=== PATIENT | male | born 1945 | race Two or more races ===

== ENCOUNTER 2024-03-31 13:45 | Inpatient (IN) | payer MEDICARE, OTHER ==
[~2024-03-31] VITALS: Ht 162.6 cm; Wt 54.4 kg
[2024-03-31] MEDS ORDERED: ASPI81TA31 PO (13:55)
[2024-03-31] MEDS ORDERED: SERT100T PO (13:55)
[2024-03-31] MEDS ORDERED: QUET25TA PO (13:55)
[2024-03-31] MEDS ORDERED: FAMO20TA8 PO (13:56)
[2024-03-31] MEDS ORDERED: ATOR40TA PO (13:56)
[2024-03-31] MEDS ORDERED: GLIP5TAB13 PO (13:56)
[2024-03-31] MEDS ORDERED: LOPE2CAP40 PO (13:57)
[2024-03-31] MEDS ORDERED: CARV3.122 PO (13:57)
[2024-03-31] MEDS ORDERED: LEVO75CA5 PO (13:57)
[2024-03-31] MEDS ORDERED: METF-440 PO (13:57)
[2024-03-31 14:08] LABS: BASOPHILS % (AUTO) 0.8 % (0.0-2.0); EOSINOPHILS # (AUTO) 0.2 K/uL (0.0-0.7); EOSINOPHILS % (AUTO) 2.9 % (0.0-7.0); HEMATOCRIT 42.4 % (36.7-47.1); HEMOGLOBIN 14.2 g/dL (12.5-16.3); LYMPHOCYTES # (AUTO) 1.4 K/uL (0.8-4.8); MEAN CORPUSCULAR HEMOGLOBIN 32.9 uug (23.8-33.4); MEAN CORPUSCULAR HGB CONC 34 g/dL (32.5-36.3); MEAN CORPUSCULAR VOLUME 98.1 fL (73.0-96.2); MONOCYTES # (AUTO) 0.5 K/uL (0.1-1.30); MONOCYTES % (AUTO) 8.9 % (0.0-11.0); NEUTROPHILS # (AUTO) 3.1 K/uL (1.8-8.9); NEUTROPHILS % (AUTO) 59.4 % (38.5-71.5); PLATELET COUNT (AUTO) 248 K/uL (152-348); RED BLOOD CELL COUNT(AUTO) 4.32 MIL/uL (4.06-5.63); RED CELL DISTRIBUTION WIDTH 14.4 % (12.1-16.2); WHITE BLOOD COUNT (AUTO) 5.2 K/uL (3.6-10.2)
[2024-03-31 14:15] LABS: DIFFERENTIAL COMMENT 1
[2024-03-31 14:17] LABS: AMMONIA 14 umol/L (11-32); CALCIUM 9.6 mg/dL (8.5-10.1); CARBON DIOXIDE 30 mmol/L (21-32); CHLORIDE 106 mmol/L (98-107); GLUCOSE 70 mg/dL (74-106); POTASSIUM 4.3 mmol/L (3.5-5.1); SODIUM SERUM 142 mmol/L (136-145); UREA NITROGEN, BLOOD 12 mg/dL (7-18)
[2024-03-31 14:21] LABS: ETHANOL < 3 MG/DL (0-10)
[2024-03-31 14:25] LABS: ALANINE AMINOTRANSFERASE 35 U/L (16-63); ALBUMIN 3.5 g/dL (3.4-5.0); ALKALINE PHOSPHATASE 94 U/L (50-136); ASPARTATE AMINOTRANSFERASE 16 U/L (15-37); BILIRUBIN,DIRECT 0.1 mg/dL (0.0-0.2); BILIRUBIN,TOTAL 0.4 mg/dL (0.2-1.0); TOTAL PROTEIN, SERUM 6.6 g/dL (6.4-8.2)
[2024-03-31 14:26] LABS: ACETAMINOPHEN < 2.0 ug/mL (10-30)
[2024-03-31] MEDS ORDERED: MAG HYDROX/AL HYDROX/SIMETH 30 ML LIQUID UDC PO PRN (16:45)
[2024-03-31] MEDS ORDERED: LORAZEPAM 1 MG TABLET PO PRN (16:45)
[2024-03-31] MEDS ORDERED: MAGNESIUM HYDROXIDE 30 ML LIQUID UDC PO PRN (16:45)
[2024-03-31] MEDS ORDERED: TEMAZEPAM 7.5 MG CAPSULE PO PRN ×2 (16:45→21:00)
[2024-03-31 16:53] VITALS: BP 122/69; TEMP 98.8; O2SAT 96
[2024-03-31] MEDS: BLOOD SUGAR DIAGNOSTIC 1 EACH STRIP VI ONE (17:00)
[2024-03-31] MEDS ORDERED: ZOLPIDEM 5 MG TABLET PO PRN (17:30)
[2024-03-31 19:52] VITALS: BP 130/64; TEMP 98.6; O2SAT 96
[2024-03-31] MEDS: LORAZEPAM 1 MG TABLET PO PRN (20:23)
[2024-03-31] MEDS ORDERED: ZOLPIDEM 5 MG TABLET PO SCH ×2 (21:15→21:30)
[2024-03-31] MEDS: ATORVASTATIN 10 MG TABLET PO SCH (21:21)
[2024-03-31] MEDS: ZOLPIDEM 5 MG TABLET PO PRN (21:21)
[2024-04-01] MEDS: LEVOTHYROXINE SODIUM 75 MCG TABLET PO SCH (06:24)
[2024-04-01 07:54] VITALS: BP 107/57; TEMP 98; O2SAT 98
[2024-04-01] MEDS ORDERED: ASPIRIN 81 MG TAB.CHEW PO SCH (09:00)
[2024-04-01] MEDS: ASPIRIN EC 81 MG TABLET.DR PO SCH (09:11)
[2024-04-01] MEDS: FAMOTIDINE 20 MG TABLET PO SCH (09:11)
[2024-04-01] MEDS: CARVEDILOL 3.125 MG TABLET PO SCH (09:11)
[2024-04-01] MEDS: METFORMIN HCL 500 MG TABLET PO SCH (09:11)
[2024-04-01 09:17] LABS: BASOPHILS % (AUTO) 0.5 % (0.0-2.0); EOSINOPHILS # (AUTO) 0.2 K/uL (0.0-0.7); EOSINOPHILS % (AUTO) 3.1 % (0.0-7.0); HEMATOCRIT 45.6 % (36.7-47.1); HEMOGLOBIN 15.7 g/dL (12.5-16.3); LYMPHOCYTES # (AUTO) 1.9 K/uL (0.8-4.8); LYMPHOCYTES % (AUTO) 30.9 % (20.5-51.5); MEAN CORPUSCULAR HEMOGLOBIN 33.6 uug (23.8-33.4); MEAN CORPUSCULAR HGB CONC 35 g/dL (32.5-36.3); MEAN CORPUSCULAR VOLUME 97.3 fL (73.0-96.2); MONOCYTES # (AUTO) 0.5 K/uL (0.1-1.30); MONOCYTES % (AUTO) 8.6 % (0.0-11.0); NEUTROPHILS # (AUTO) 3.6 K/uL (1.8-8.9); NEUTROPHILS % (AUTO) 56.9 % (38.5-71.5); PLATELET COUNT (AUTO) 286 K/uL (152-348); RED BLOOD CELL COUNT(AUTO) 4.69 MIL/uL (4.06-5.63); RED CELL DISTRIBUTION WIDTH 14.8 % (12.1-16.2); WHITE BLOOD COUNT (AUTO) 6.3 K/uL (3.6-10.2)
[2024-04-01 09:19] LABS: DIFFERENTIAL COMMENT 1
[2024-04-01 09:25] LABS: ALANINE AMINOTRANSFERASE 36 U/L (16-63); ALBUMIN 3.9 g/dL (3.4-5.0); ALKALINE PHOSPHATASE 90 U/L (50-136); ASPARTATE AMINOTRANSFERASE 15 U/L (15-37); BILIRUBIN,TOTAL 0.6 mg/dL (0.2-1.0); CALCIUM 9.6 mg/dL (8.5-10.1); CARBON DIOXIDE 31 mmol/L (21-32); CHLORIDE 101 mmol/L (98-107); CREATININE 1.1 mg/dL (0.6-1.3); GLUCOSE 211 mg/dL (74-106); POTASSIUM 4.2 mmol/L (3.5-5.1); SODIUM SERUM 138 mmol/L (136-145); TOTAL PROTEIN, SERUM 7.4 g/dL (6.4-8.2); UREA NITROGEN, BLOOD 13 mg/dL (7-18)
[2024-04-01 09:27] LABS: MAGNESIUM 1.7 mg/dL (1.8-2.4); PHOSPHOROUS 3.7 mg/dL (2.5-4.9)
[2024-04-01] MEDS ORDERED: CHOL200059 PO (09:36)
[2024-04-01 10:31] LABS: THYROID STIMULATING HORMONE 6.396 mIU/mL (0.358-3.740)
[2024-04-01 15:00] VITALS: BP_SYST 112; BP_SYST 116; BP_DIAS 60; BP_DIAS 66; TEMP 98; TEMP 98.1; O2SAT 96; O2SAT 98
[2024-04-01] MEDS: MAGNESIUM OXIDE 400 MG TABLET PO ONE (17:56)
[2024-04-01 20:11] VITALS: BP 112/60; TEMP 98.1; O2SAT 96
[2024-04-01] MEDS: TEMAZEPAM 7.5 MG CAPSULE PO SCH (21:12)
[2024-04-01] MEDS: QUETIAPINE FUMARATE 25 MG TABLET PO SCH (21:12)
[2024-04-02 08:19] VITALS: BP 106/59; TEMP 98; O2SAT 98
[2024-04-02] MEDS: CHOLECALCIFEROL 1,000 UNIT TABLET PO SCH (08:37)
[2024-04-02] MEDS: SERTRALINE HCL 100 MG TABLET PO SCH (08:37)
[2024-04-02 16:56] VITALS: BP 107/56; TEMP 98; O2SAT 98
[2024-04-02 21:29] VITALS: BP 124/63; TEMP 98; O2SAT 98
[2024-04-03 08:09] VITALS: BP 105/58; TEMP 98.5; O2SAT 98
[2024-04-03 16:36] VITALS: BP 116/55; TEMP 98.4; O2SAT 98
[2024-04-03 20:04] VITALS: BP 111/56; TEMP 98.1; O2SAT 98
[2024-04-04 08:07] VITALS: BP 109/64; TEMP 97.4; O2SAT 97
[2024-04-04] MEDS: CLONAZEPAM 0.5 MG TABLET PO PRN (08:24)
[2024-04-04] MEDS: SERTRALINE HCL 50 MG TABLET PO SCH (08:27)
[2024-04-04] MEDS ORDERED: SERTRALINE HCL 100 MG TABLET PO SCH (09:00)
[2024-04-04 16:25] VITALS: BP 129/67; TEMP 97.6; O2SAT 96
[2024-04-04 20:11] VITALS: BP 104/69; TEMP 98.1; O2SAT 96
[2024-04-05 08:28] VITALS: BP 119/56; TEMP 98; O2SAT 96
[2024-04-05 15:02] VITALS: BP 106/61; TEMP 98.2; O2SAT 98
[2024-04-05 19:54] VITALS: BP 112/64; TEMP 98.1; O2SAT 96
[2024-04-05 23:50] LABS: *BILIRUBIN,URIN NEGATIVE (NEGATIVE); *BLOOD, URINE NEGATIVE (NEGATIVE); *CLARITY,URINE CLEAR (CLEAR); *COLOR,URINE LIGHT YELLOW (YELLOW); *KETONES,URINE NEGATIVE (NEGATIVE); *PROTEIN,URINE NEGATIVE (NEGATIVE); *UROBILINOGEN,URINE 0.2 E.U./dl (NORMAL); LEUKOCYTE ESTERASE ,URINE NEGATIVE (NEGATIVE); NITRITE, URINE NEGATIVE (NEGATIVE); UGLUCOSE NEGATIVE (NEGATIVE)
[2024-04-06 07:42] VITALS: BP 111/78; TEMP 98.2; O2SAT 98
[2024-04-06 08:52] LABS: CALCIUM 9.1 mg/dL (8.5-10.1); CARBON DIOXIDE 33 mmol/L (21-32); CHLORIDE 105 mmol/L (98-107); GLUCOSE 122 mg/dL (74-106); MAGNESIUM 1.7 mg/dL (1.8-2.4); POTASSIUM 3.9 mmol/L (3.5-5.1); SODIUM SERUM 142 mmol/L (136-145); UREA NITROGEN, BLOOD 9 mg/dL (7-18)
[2024-04-06 09:21] LABS: THYROID STIMULATING HORMONE 3.008 mIU/mL (0.358-3.740)
[2024-04-06] MEDS: MAGNESIUM OXIDE 400 MG TABLET PO ONE (12:41)
[2024-04-06 15:59] VITALS: BP 121/71; TEMP 98; O2SAT 97
[2024-04-06 20:00] VITALS: BP 108/57; TEMP 97.9; O2SAT 96
[2024-04-07 07:52] VITALS: BP 99/63; TEMP 98.2; O2SAT 96
[2024-04-07 15:29] VITALS: BP 112/59; TEMP 98.6; O2SAT 98
[2024-04-07 20:00] VITALS: BP 119/65; TEMP 97.8; O2SAT 98
[2024-04-08 07:50] VITALS: BP 90/52; TEMP 98; O2SAT 96
[2024-04-08 15:44] VITALS: BP 96/57; TEMP 97.8; O2SAT 98
[2024-04-08 19:52] VITALS: BP 105/67; TEMP 98; O2SAT 95
[2024-04-09 07:43] VITALS: BP 110/68; TEMP 98; O2SAT 98
[2024-04-09 16:15] VITALS: BP 112/60; TEMP 98.6; O2SAT 99
[2024-04-09] MEDS ORDERED: LOPERAMIDE HCL 1 MG/7.5 ML LIQUID GT PRN (19:00)
[2024-04-09 19:47] VITALS: BP 104/57; TEMP 98; O2SAT 96
[2024-04-10 07:56] VITALS: BP 105/60; TEMP 97.9; O2SAT 96
[2024-04-10 08:23] LABS: BASOPHILS % (AUTO) 0.5 % (0.0-2.0); EOSINOPHILS # (AUTO) 0.2 K/uL (0.0-0.7); HEMATOCRIT 41.1 % (36.7-47.1); HEMOGLOBIN 13.7 g/dL (12.5-16.3); LYMPHOCYTES # (AUTO) 1.5 K/uL (0.8-4.8); LYMPHOCYTES % (AUTO) 33.7 % (20.5-51.5); MEAN CORPUSCULAR HGB CONC 33 g/dL (32.5-36.3); MONOCYTES # (AUTO) 0.5 K/uL (0.1-1.30); MONOCYTES % (AUTO) 10.2 % (0.0-11.0); NEUTROPHILS # (AUTO) 2.2 K/uL (1.8-8.9); NEUTROPHILS % (AUTO) 50.6 % (38.5-71.5); PLATELET COUNT (AUTO) 205 K/uL (152-348); RED BLOOD CELL COUNT(AUTO) 4.15 MIL/uL (4.06-5.63); RED CELL DISTRIBUTION WIDTH 14.8 % (12.1-16.2); WHITE BLOOD COUNT (AUTO) 4.5 K/uL (3.6-10.2)
[2024-04-10 08:34] LABS: CALCIUM 8.7 mg/dL (8.5-10.1); CARBON DIOXIDE 33 mmol/L (21-32); CHLORIDE 104 mmol/L (98-107); GLUCOSE 184 mg/dL (74-106); POTASSIUM 3.6 mmol/L (3.5-5.1); SODIUM SERUM 142 mmol/L (136-145); UREA NITROGEN, BLOOD 9 mg/dL (7-18)
[2024-04-10] MEDS ORDERED: POLYVINYL ALCOHOL OPHT DROPS 15 ML BOTTLE EACHEYE PRN (14:45)
[2024-04-10 15:28] VITALS: BP 109/58; TEMP 97.9; O2SAT 95
[2024-04-10] MEDS: AMOXICILLIN-CLAVUL 875-125MG TABLET PO SCH (15:51)
[2024-04-10 20:05] VITALS: BP 101/56; TEMP 97.8; O2SAT 95
[2024-04-10] MEDS: ACETAMINOPHEN 325 MG TABLET PO PRN (22:07)
[2024-04-11 08:02] VITALS: BP 109/67; TEMP 97.8; O2SAT 98
[2024-04-11 15:53] VITALS: BP 105/78; TEMP 98.1; O2SAT 97
[2024-04-11 19:48] VITALS: BP 111/76; TEMP 97.9; O2SAT 96
[2024-04-12 07:43] VITALS: BP 101/63; TEMP 98; O2SAT 96
[2024-04-12 15:13] VITALS: BP 112/62; TEMP 98; O2SAT 98
[2024-04-12 19:48] VITALS: BP 110/60; TEMP 97.9; O2SAT 96
[2024-04-13 08:14] VITALS: BP 111/65; TEMP 98.2; O2SAT 94
[2024-04-13 15:16] VITALS: BP 102/54; TEMP 98.8; O2SAT 94
[2024-04-13 20:00] VITALS: BP 99/62; TEMP 98.3; O2SAT 97
[2024-04-14 08:13] VITALS: BP 103/59; TEMP 98; O2SAT 98
[2024-04-14 08:55] VITALS: BP 103/59
== END 2024-04-14 15:30 | disposition home or self-care (01) | DRG 885 ==
LOC: ER 13:45 → GPS 16:07
PROVIDERS: ADMIT Psychiatry & Neurology Psychiatry; ATTEND Nurse Practitioner Acute Care
DX: F29 Unspecified psychosis not due to a substance or known physiological condition (principal); F03.94 Unspecified dementia, unspecified severity, with anxiety; F03.911 Unspecified dementia, unspecified severity, with agitation; F03.93 Unspecified dementia, unspecified severity, with mood disturbance; E11.9 Type 2 diabetes mellitus without complications; E03.9 Hypothyroidism, unspecified; E78.5 Hyperlipidemia, unspecified; R19.7 Diarrhea, unspecified; K21.9 Gastro-esophageal reflux disease without esophagitis; E83.42 Hypomagnesemia; Z79.82 Long term (current) use of aspirin; Z79.84 Long term (current) use of oral hypoglycemic drugs; Z79.899 Other long term (current) drug therapy; Z79.890 Hormone replacement therapy; R26.2 Difficulty in walking, not elsewhere classified
CPT/HCPCS: 36415; 70450; 71045; 83735; 84100; 84443; 84484; 85025; 85730; 93005; G0480